=== PATIENT | female | born 1995 | race Two or more races ===

== ENCOUNTER 2019-02-28 15:26 | Emergency (ER) | payer OTHER ==
[~2019-02-28] VITALS: Ht 160 cm; Wt 82.5 kg
[2019-02-28 16:07] LABS: BASOPHILS # (AUTO) 0.09 x10^3/uL (0-0.1); BASOPHILS % (AUTO) 1 % (0-1); EOSINOPHILS # (AUTO) 0.17 x10^3/uL (0-0.4); EOSINOPHILS % (AUTO) 2 % (1-7); LYMPHOCYTES # (AUTO) 2.04 x10^3/uL (1-3.4); LYMPHOCYTES % (AUTO) 19 % (22-44); MD NO; MEAN CORPUSCULAR HEMOGLOBIN 31.2 pg (27.0-34.8); MEAN CORPUSCULAR VOLUME 94.5 fL (80-100); MEAN PLATELET VOLUME 8.7 fL (7.4-10.4); MONOCYTES # (AUTO) 0.58 x10^3/uL (0.2-0.8); MONOCYTES % (AUTO) 6 % (2-9); NEUTROPHILS # (AUTO) 7.61 x10^3/uL (1.8-6.8); NEUTROPHILS % (AUTO) 73 % (42-75); PLATELET COUNT 332 x10^3/uL (130-400); RED BLOOD COUNT 4.48 x10^6/uL (3.82-5.3); RED CELL DISTRIBUTION WIDTH 13.7 % (9.6-15.2)
[2019-02-28 16:16] LABS: ALBUMIN 3.9 g/dL (3.4-5.0); ANION GAP 5 mmol/L (5-15); CALCIUM 9.5 mg/dL (8.5-10.1); CHLORIDE 110 mmol/L (98-107); CREATININE 0.69 mg/dL (0.55-1.02)
[2019-02-28] MEDS ORDERED: CALCIUM (16:19)
--- NOTE | 2019-02-28 16:45 | NUR ---
PT ENDORSED TO BREAK RN: AQUILES
--- NOTE | 2019-02-28 18:06 | NUR ---
DIMITRI FULLER BS TO DISCUSS DC INSTRUCTIONS W/ PT; USING CYRACOM. Addendum: 02/28/19 at 1807 by EDUARDO DIRECTOR OF ACADEMIC SUPPORT: RASHID #[id number]
[2019-02-28 18:22] LABS: MICROSCOPIC INDICATED
[2019-02-28 18:32] LABS: CULTURE INDICATED? YES
[2019-02-28 19:58] VITALS: BP 100/63
== END 2019-02-28 20:16 | disposition home or self-care (01) ==
LOC: ED 18:57
DX: O20.0 Threatened abortion (principal); O23.41 Unspecified infection of urinary tract in pregnancy, first trimester; Z3A.01 Less than 8 weeks gestation of pregnancy
CPT/HCPCS: 36415; 76801; 80048; 81001; 82040; 84702; 85025; 86901; 87086; 99284

== ENCOUNTER 2019-03-01 09:03 | Emergency (ER) | payer OTHER ==
[~2019-03-01] VITALS: Ht 160 cm; Wt 83.2 kg
[~2019-03-01 09:03] MED LIST: CALCIUM
--- NOTE | 2019-03-01 09:12 | NUR ---
IOS DEVELOPER: CADDYMASTER PHONE USED IN TRIAGE.
--- NOTE | 2019-03-01 09:27 | NUR ---
FIRST CONTACT WITH PT. PT C/O "I CAME IN YESTERDAY BECAUSE I FELT LIKE I WAS HAVING AN . TODAY I AM BLEEDING A LOT AND IT LOOKS LIKE I AM HAVING A NATURAL ." HAS GONE THROUGH 3 PADS TODAY. DX WITH THREATENED YESTERDAY. PT C/O ABD PAIN. PT'S AOX4. RESPS EVEN AND UNLABORED. BP/SPO2 MONITORS IN PLACE. CALL LIGHT WITHIN REACH. EDMD AT BEDSIDE TO EVALUATE. CANADIAN SPEAKING.
[2019-03-01 09:41] LABS: BASOPHILS # (AUTO) 0.04 x10^3/uL (0-0.1); BASOPHILS % (AUTO) 0 % (0-1); EOSINOPHILS # (AUTO) 0.08 x10^3/uL (0-0.4); EOSINOPHILS % (AUTO) 1 % (1-7); LYMPHOCYTES # (AUTO) 1.48 x10^3/uL (1-3.4); LYMPHOCYTES % (AUTO) 13 % (22-44); MD NO; MEAN CORPUSCULAR HEMOGLOBIN 31.1 pg (27.0-34.8); MEAN CORPUSCULAR HGB CONC 33.4 g/dL (32.4-35.8); MEAN CORPUSCULAR VOLUME 93.1 fL (80-100); MEAN PLATELET VOLUME 8.4 fL (7.4-10.4); MONOCYTES # (AUTO) 0.24 x10^3/uL (0.2-0.8); MONOCYTES % (AUTO) 2 % (2-9); NEUTROPHILS # (AUTO) 9.61 x10^3/uL (1.8-6.8); NEUTROPHILS % (AUTO) 84 % (42-75); PLATELET COUNT 309 x10^3/uL (130-400); RED BLOOD COUNT 4.16 x10^6/uL (3.82-5.3); RED CELL DISTRIBUTION WIDTH 13.7 % (9.6-15.2)
--- NOTE | 2019-03-01 10:29 | NUR ---
PELVIC EXAM DONE AT BEDSIDE BY EDMD. PT TOLERATED WELL.
[2019-03-01 11:09] VITALS: BP 118/67
--- NOTE | 2019-03-01 11:11 | NUR ---
Patient given discharge instructions and they have confirmed that they understand the instructions. CYRACOM:[id number]
== END 2019-03-01 11:11 | disposition home or self-care (01) ==
LOC: ED 10:12
DX: O03.9 Complete or unspecified spontaneous abortion without complication (principal)
CPT/HCPCS: 36415; 84702; 85025; 99283